=== PATIENT | male | born 1945 | race Caucasian/White ===

== ENCOUNTER 2021-06-03 12:55 | Emergency (ER) | payer MEDICARE, BC ==
[2021-06-03] MEDS ORDERED: Bacitracin 1 PK ONE (14:49)
== END 2021-06-03 14:59 | disposition home or self-care (01) ==
LOC: CSHERS 12:55
DX: S00.01XA Abrasion of scalp, initial encounter (principal); I25.10 Atherosclerotic heart disease of native coronary artery without angina pectoris; W22.8XXA Striking against or struck by other objects, initial encounter
CPT/HCPCS: 70450; 72125

== ENCOUNTER 2022-12-23 10:13 | Outpatient (CLI) | payer MEDICARE, BC ==
[2022-12-23 11:45] LABS: Hematocrit 44.2 % (38.8-50.0); Hemoglobin 14.4 g/dL (13.5-17.5); Mean Corpuscular HGB CONC 32.6 g/dL (32.0-36.0); Mean Corpuscular Volume 98.2 fl (81.2-95.1); Mean Platelet Volume 8.7 fl (7.4-10.4); Platelet Count 212 10x3/uL (150-450); RBC Distribution Width 13.4 % (11.5-14.5)
[2022-12-23 12:01] LABS: Prothrombin Time 10.7 sec (9.5-12.1)
[2022-12-23 12:05] LABS: Anion Gap 16 mmol/L (10-20); BUN (Urea Nitrogen) 11 mg/dL (8.4-25.7); Calc. Creatinine Clearance 0 mL/min (70-130); Calcium 9.3 mg/dL (7.8-10.44); Carbon Dioxide 22 mmol/L (23-31); Chloride 107 mmol/L (98-107); Estimated GFR 73; Glucose 109 mg/dL (83-110); Potassium 4.7 mmol/L (3.5-5.1); Sodium 140 mmol/L (136-145)
== END 2022-12-23 10:14 | disposition home or self-care (01) ==
LOC: CSHLAB 10:13
PROVIDERS: ATTEND Specialist
DX: Z01.818 Encounter for other preprocedural examination (principal)
CPT/HCPCS: 80048; 85027; 85610; 93005; 93010

== ENCOUNTER 2022-12-23 10:30 | Inpatient (IN) | payer MEDICARE, BC ==
[2022-12-24] MEDS ORDERED: Phenylephrine 40 MG/NS 250 ML 250 ML ONE (09:07)
[2022-12-24] MEDS ORDERED: Ascorbic Acid 500 mg Chewable Tablet ONE (09:07)
[2022-12-24] MEDS ORDERED: Aspirin 325 MG TAB ONE (09:07)
[2022-12-24] MEDS ORDERED: Nitroglycerin 50 MG/250 ML BOT 0 ML ONE (09:30)
[2022-12-24] MEDS ORDERED: PHENYLEPHRINE-NS 100 MCG/ML 10 ML SYRINGE ONE (09:30)
[2022-12-24] MEDS ORDERED: Heparin 10,000 UNITS/ 10 ML VIAL ONE (09:30)
[2022-12-24] MEDS ORDERED: Atropine Sulfate 1 mg/1 ml Vial ONE (09:31)
[2022-12-24] MEDS ORDERED: Adenosine 6 MG/2 ML VIAL ONE (09:31)
[2022-12-24 09:53] VITALS: BMI 37.0
[2022-12-24] MEDS ORDERED: Iopamidol 300 61% 100 ML VIAL FS ONE (12:06)
[2022-12-24] MEDS ORDERED: fentaNYL 50 mcg/mL 1 mL Vial ONE (12:22)
[2022-12-24] MEDS ORDERED: Lidocaine 1% (PF) 30 ML VIAL ONE (12:22)
[2022-12-24] MEDS ORDERED: Midazolam HCl 2 mg/2 ml Vial ONE (12:23)
[2022-12-24] MEDS ORDERED: Morphine 2 MG/ML VIAL SLOW IVP PRN (13:38)
[2022-12-24] MEDS ORDERED: Acetaminophen/Codeine 30-300mg Tablet PO PRN ×2 (13:38)
[2022-12-24] MEDS ORDERED: Nitroglycerin 4.9 GM Bottle SL PRN (13:42)
[2022-12-24] MEDS ORDERED: Ipratropium Bromide 0.06% Nasal Inhaler 15ml EA NARE PRN (13:42)
[2022-12-24] MEDS ORDERED: Sodium Chloride 0.9% 1,000 ML IV SCH (13:45)
[2022-12-24] MEDS ORDERED: Phenylephrine 40 MG/NS 250 ML 40 MG in Premix Bag 1 BAG IVPB SCH (15:15)
[2022-12-24] MEDS ORDERED: Tamsulosin HCl 0.4 MG CAP PO SCH (21:00)
[2022-12-24] MEDS ORDERED: MAG HYDROX PO SCH (21:00)
[2022-12-24] MEDS ORDERED: [UNRECOGNIZED DRUG - OTHER] PO SCH (21:00)
[2022-12-24] MEDS ORDERED: Losartan 25 MG TAB PO SCH (21:00)
[2022-12-24] MEDS ORDERED: FAMOTIDINE PO SCH (21:00)
[2022-12-24] MEDS ORDERED: Rosuvastatin 20 MG TAB PO SCH (21:00)
[2022-12-24] MEDS ORDERED: CA CARB PO SCH (21:00)
[2022-12-24 22:21] VITALS: TEMP 98
[2022-12-25 04:08] VITALS: BP 102/52
[2022-12-25 04:12] LABS: #Monocytes 0.7 10x3/uL (0.0-1.1); #Neutrophils 4.8 10x3/uL (1.5-8.4); %Basophils 0.4 % (0.0-2.0); %Eosinophils 0.4 % (0.0-6.0); %Lymphocytes 25.6 % (18.0-47.0); %Monocytes 9.3 % (0.0-10.0); %Neutrophils 63.9 % (40.0-75.0); Hematocrit 36.9 % (38.8-50.0); Hemoglobin 12.3 g/dL (13.5-17.5); Mean Corpuscular HGB CONC 33.3 g/dL (32.0-36.0); Mean Corpuscular Volume 96.1 fl (81.2-95.1); Mean Platelet Volume 9.1 fl (7.4-10.4); Platelet Count 192 10x3/uL (150-450); RBC Distribution Width 13.6 % (11.5-14.5); Red Blood Cell (RBC) Count 3.84 10x6/uL (4.32-5.72); White Blood Cell (WBC) Count 7.4 10x3/uL (3.5-10.5)
[2022-12-25 04:14] LABS: ALT (SGPT) 12 U/L (8-55); AST (SGOT) 19 U/L (5-34); Albumin 3.8 g/dL (3.4-4.8); Alkaline Phosphatase 49 U/L (40-110); Anion Gap 15 mmol/L (10-20); BUN (Urea Nitrogen) 16 mg/dL (8.4-25.7); Bilirubin, Total 1.8 mg/dL (0.2-1.2); Calc. Creatinine Clearance 82 mL/min (70-130); Calcium 8.6 mg/dL (7.8-10.44); Carbon Dioxide 20 mmol/L (23-31); Chloride 107 mmol/L (98-107); Estimated GFR 73; Globulin 2.3 g/dL (2.4-3.5); Glucose 98 mg/dL (83-110); Potassium 3.9 mmol/L (3.5-5.1); Protein, Total 6.1 g/dL (5.8-8.1); Sodium 138 mmol/L (136-145)
[2022-12-25] MEDS ORDERED: Clopidogrel Bisulfate 75 MG TAB PO SCH (09:00)
[2022-12-25] MEDS ORDERED: Ezetimibe 10 MG TAB PO SCH (09:00)
[2022-12-25] MEDS ORDERED: Aspirin Chewable 81 MG TAB PO SCH (09:00)
[2022-12-25] MEDS ORDERED: VIT E PO SCH (09:00)
[2022-12-25] MEDS ORDERED: Ascorbic Acid 500 mg Chewable Tablet PO SCH (09:00)
[2022-12-25] MEDS ORDERED: CO Q-10 CAPSULE 50 MG PO SCH (09:00)
[2022-12-25] MEDS ORDERED: Multivit, Therapeutic 1 TAB PO SCH (09:00)
[2022-12-25] MEDS ORDERED: [UNRECOGNIZED DRUG - OTHER] PO SCH (09:00)
== END 2022-12-25 11:15 | disposition home or self-care (01) | DRG 35 ==
LOC: CSHERHOLD 12-24 08:43 → CSHICU 12-24 14:09
PROVIDERS: ADMIT Specialist; ATTEND Specialist
PROC: 037L3DZ Dilation of Left Internal Carotid Artery with Intraluminal Device, Percutaneous Approach (ICD-10-PCS; principal; 2022-12-24)
PROC: B3151ZZ Fluoroscopy of Bilateral Common Carotid Arteries using Low Osmolar Contrast (ICD-10-PCS; 2022-12-24)
PROC: B3121ZZ Fluoroscopy of Left Subclavian Artery using Low Osmolar Contrast (ICD-10-PCS; 2022-12-24)
DX: I65.23 Occlusion and stenosis of bilateral carotid arteries (principal); I50.42 Chronic combined systolic (congestive) and diastolic (congestive) heart failure; I11.0 Hypertensive heart disease with heart failure; E78.5 Hyperlipidemia, unspecified; I25.10 Atherosclerotic heart disease of native coronary artery without angina pectoris; E78.2 Mixed hyperlipidemia; F32.A Depression, unspecified; N40.0 Benign prostatic hyperplasia without lower urinary tract symptoms; I49.3 Ventricular premature depolarization; Z71.89 Other specified counseling; Z79.899 Other long term (current) drug therapy; Z79.82 Long term (current) use of aspirin; Z95.1 Presence of aortocoronary bypass graft; Z98.890 Other specified postprocedural states; Z88.1 Allergy status to other antibiotic agents; Z91.018 Allergy to other foods; Z87.891 Personal history of nicotine dependence; Z82.49 Family history of ischemic heart disease and other diseases of the circulatory system
CPT/HCPCS: 36215; 36222; 36225; 36228; 36415; 37215; 75710; 80048; 80053; 85025; 85027; 85347; 85610; 93005; 93010; 99152; 99153; C1725; C1760; C1769; C1876; C1884; C1894; J0153; J0461; J1644; J2001; J2250; J3010; J7050; Q9967